=== PATIENT | female | born 1940 | race Caucasian/White ===

== ENCOUNTER 2017-03-09 15:39 | Inpatient (IN) | payer MEDICARE, BC ==
[~2017-03-09] VITALS: Ht 172.7 cm; Wt 90.0 kg
[~2017-03-09 15:39] MED LIST: BAC TOP; BORIC ACID VG; CHOL500050 PO; ESTRADIOL TOP; GABA TOP; GUAI100L97 PO; KETO TOP; LACT1CAP26 PO; LEVOTHYROXINE PO; LIOTHYRONINE PO; NAPR220T67 PO; OMEG500C PO; PENTOX TOP; TESTOST TOP; VITA1TAB20 PO
[2017-03-09 17:37] LABS: BASOPHILS % (AUTO) 0.3 % (0-1); EOSINOPHILS % (AUTO) 0.4 % (0-6); HEMATOCRIT 38.3 % (35.0-45.0); HEMOGLOBIN 12.6 g/dl (12.0-16.0); LYMPHOCYTES # (AUTO) 0.4 X10'3 (1.1-4.8); LYMPHOCYTES % (AUTO) 9.4 % (21-51); MEAN CORPUSCULAR HEMOGLOBIN 31.1 PG (27.0-31.0); MEAN CORPUSCULAR VOLUME 94.3 FL (78-98); MEAN PLATELET VOLUME 9.8 FL (7.4-10.4); MONOCYTES # (AUTO) 0.2 X10'3 (0-0.9); NEUTROPHILS # (AUTO) 3.9 X10'3 (1.8-7.7); NEUTROPHILS % (AUTO) 85.9 % (42-75); PLATELET COUNT 216 X10'3 (140-440); RED BLOOD COUNT 4.06 X10'6 (4.20-5.60); RED CELL DISTRIBUTION WIDTH 17.5 % (11.5-14.5); WHITE BLOOD COUNT 4.5 X10'3 (4.5-11.0)
[2017-03-09 17:45] LABS: PARTIAL THROMBOPLASTIN TIME 39 SECONDS (22-32)
[2017-03-09 17:51] LABS: ALANINE AMINOTRANSFERASE 69 U/L (12-78); ALBUMIN 2.7 G/DL (3.4-5.0); ALBUMIN/GLOBULIN RATIO 0.7 (1.1-1.5); ALKALINE PHOSPHATASE 111 IU/L (46-116); ANION GAP 7 (8-16); ASPARTATE AMINO TRANSFERASE 42 U/L (10-37); BILIRUBIN,TOTAL 0.4 MG/DL (0.1-1.0); BLOOD UREA NITROGEN 8 MG/DL (7-18); CALCIUM 9.7 MG/DL (8.5-10.1); CHLORIDE 96 MMOL/L (99-107); GLUCOSE 84 MG/DL (70-104); MAGNESIUM 1.7 MG/DL (1.5-2.4); POTASSIUM 4.3 MMOL/L (3.5-5.1); SODIUM 133 MMOL/L (135-145); TOTAL CARBON DIOXIDE 30.2 MMOL/L (24-32); TOTAL PROTEIN 6.8 G/DL (6.4-8.2); eGFR > 90 ML/MIN
[2017-03-09 17:52] LABS: ANISOCYTOSIS 1+; BANDS% (MANUAL) 20 % (0-10); LARGE PLATELETS FEW; LYMPHOCYTES % (MANUAL) 6 % (21-51); MONOCYTES % (MANUAL) 6 % (2-12); NEUTROPHILS % (MANUAL) 68 % (42-75); PLATELET ESTIMATE NORMAL; TOTAL CELLS COUNTED 100
[2017-03-09] MEDS ORDERED: normal saline 1000ML IV soln IVB ONE (18:05)
[2017-03-09] MEDS ORDERED: CefTRIAXone 2gm/NS 100ml IVPB 100 ML IV ONE (18:05)
[2017-03-09] MEDS ORDERED: ipratropium/albuterol 3ml nebule NEB ONE (18:05)
[2017-03-09] MEDS ORDERED: azithromycin/NS 500mg/250ml 250 ML IV ONE (18:10)
[2017-03-09] MEDS ORDERED: methylPREDNISolone sod succ 125mg/2ml vial IV ONE (20:30)
[2017-03-09 20:54] LABS: CLARITY,URINE Cloudy (Clear); COLOR,URINE Yellow (Yellow); GLUCOSE, URINE Negative (Neg); KETONES,URINE 40 mg/dl (Neg); LEUKOCYTE ESTERASE ,URINE Negative (Neg); NITRITES, URINE Positive (Neg); OCCULT BLOOD,URINE Negative (Neg); PROTEIN,URINE Negative (Neg); UROBILINOGEN,URINE 0.2 E.U/dL (0.2-1.0)
[2017-03-09] MEDS ORDERED: temazepam 15mg capsule PO PRN (21:00)
[2017-03-09 21:20] LABS: UA COLLECTION TYPE FOLEY CATH
[2017-03-09 21:21] LABS: BACTERIA,URINE 4+ /HPF (Neg); RBC,URINE NONE SEEN /HPF (0-2); SQUAMOUS EPITHELIAL CELL,UR FEW /LPF (FEW); WBC,URINE NONE SEEN /HPF (0-4)
[2017-03-09] MEDS ORDERED: magnesium hydroxide 30ml (MOM) UD suspension PO PRN (21:50)
[2017-03-09] MEDS ORDERED: HYDROmorphone 1 mg/ml syringe IV PRN ×2 (21:50)
[2017-03-09] MEDS ORDERED: magnesium 4gm in 100ml NS 100 ML IV PRN (21:50)
[2017-03-09] MEDS ORDERED: potassium Cl 40MEQ/NS 500ml 500 ML IV PRN ×2 (21:50)
[2017-03-09] MEDS ORDERED: acetaminophen 325mg tablet PO PRN (21:50)
[2017-03-09] MEDS ORDERED: ondansetron/PF 4mg/2ml inj IV PRN (21:50)
[2017-03-09] MEDS ORDERED: mag hydrox/Alum hydrox/simeth 30ml oral suspension PO PRN (21:50)
[2017-03-09] MEDS ORDERED: HYDROcodone/acetaminophen 10/325mg tab PO PRN (21:50)
[2017-03-09] MEDS ORDERED: potassium Cl 20 mEq SR tablet PO PRN ×2 (21:50)
[2017-03-09] MEDS ORDERED: HYDROcodone/acetaminophen 5mg/325mg tablet PO PRN (21:50)
[2017-03-09] MEDS ORDERED: magnesium Cl slow-release 64mg tablet PO PRN (21:50)
[2017-03-09] MEDS ORDERED: magnesium 2GM in 50ml NS 50 ML IV PRN (21:50)
[2017-03-09] MEDS: normal saline 1000ml 1,000 ML IV SCH (22:44)
[2017-03-10] MEDS: piperacillin/tazo 3.375gm/50ml 50 ML IV SCH ×4 (02:45→20:23)
[2017-03-10 06:00] VITALS: BP 135/70
[2017-03-10 06:05] LABS: HEMATOCRIT 37.1 % (35.0-45.0); HEMOGLOBIN 12.4 g/dl (12.0-16.0); MEAN CORPUSCULAR HEMOGLOBIN 31.3 PG (27.0-31.0); MEAN CORPUSCULAR HGB CONC 33.5 % (33.0-36.5); MEAN CORPUSCULAR VOLUME 93.4 FL (78-98); PLATELET COUNT 209 X10'3 (140-440); RED BLOOD COUNT 3.97 X10'6 (4.20-5.60); RED CELL DISTRIBUTION WIDTH 17.7 % (11.5-14.5); WHITE BLOOD COUNT 4.2 X10'3 (4.5-11.0)
[2017-03-10 06:44] LABS: ANISOCYTOSIS 2+; NUCLEATED RED BLOOD CELLS 1 /100WBC (0-0); PLATELET ESTIMATE NORMAL; TOTAL CELLS COUNTED 100
[2017-03-10 06:45] LABS: LARGE PLATELETS FEW; POIKILOCYTOSIS 1+; TARGET CELLS 1+; TOXIC GRANULATION 2+; TOXIC VACUOLATION 2+
[2017-03-10 07:03] LABS: ALANINE AMINOTRANSFERASE 61 U/L (12-78); ALBUMIN 2.3 G/DL (3.4-5.0); ALBUMIN/GLOBULIN RATIO 0.6 (1.1-1.5); ALKALINE PHOSPHATASE 121 IU/L (46-116); ANION GAP 10 (8-16); ASPARTATE AMINO TRANSFERASE 34 U/L (10-37); BILIRUBIN,TOTAL 0.4 MG/DL (0.1-1.0); BLOOD UREA NITROGEN 6 MG/DL (7-18); CALCIUM 9.5 MG/DL (8.5-10.1); CHLORIDE 101 MMOL/L (99-107); CREATININE 0.43 MG/DL (0.40-0.90); GLUCOSE 105 MG/DL (70-104); MAGNESIUM 1.6 MG/DL (1.5-2.4); POTASSIUM 4.7 MMOL/L (3.5-5.1); SODIUM 138 MMOL/L (135-145); TOTAL CARBON DIOXIDE 27.2 MMOL/L (24-32); TOTAL PROTEIN 6.4 G/DL (6.4-8.2); eGFR > 90 ML/MIN
[2017-03-10] MEDS ORDERED: methylPREDNISolone sod succ 125mg/2ml vial IV SCH (08:00)
[2017-03-10] MEDS: K and/or MAG REPLACEMENT MC SCH (08:00)
[2017-03-10] MEDS: normal saline 1000ml 1,000 ML IV SCH (08:18)
[2017-03-10] MEDS: azithromycin/NS 500mg/250ml 250 ML IV SCH (08:23)
[2017-03-10] MEDS: guaiFENesin 200mg/10ml UD cup PO SCH ×3 (08:29→20:23)
[2017-03-10] MEDS: vitamin B comp w/Vit. C tab 1 TAB TABLET PO SCH (08:31)
[2017-03-10] MEDS: lactobacillus rhamnosus 10,000 MMU CELLS/CAPSULE PO SCH ×2 (08:31→20:24)
[2017-03-10] MEDS: vitamin D (cholecalciferol) 1,000 unit tablet PO SCH (08:31)
[2017-03-10] MEDS: heparin, porcine 5000 units/ml vial SQ SCH ×2 (09:11→20:23)
[2017-03-10 10:00] VITALS: BP 130/64
[2017-03-10] MEDS: NORMAL SALINE IV SCH (10:01)
[2017-03-10] MEDS: METHYLPREDNISOLONE SOD SUCC IV SCH (10:01)
[2017-03-10 18:00] VITALS: BP 134/70
[2017-03-10 22:00] VITALS: BP 134/74
[2017-03-11] MEDS: piperacillin/tazo 3.375gm/50ml 50 ML IV SCH ×2 (02:19→10:21)
[2017-03-11 05:00] VITALS: BP 134/83
[2017-03-11 06:21] LABS: HEMATOCRIT 32.8 % (35.0-45.0); HEMOGLOBIN 10.9 g/dl (12.0-16.0); MEAN CORPUSCULAR HEMOGLOBIN 31.3 PG (27.0-31.0); MEAN CORPUSCULAR HGB CONC 33.3 % (33.0-36.5); MEAN CORPUSCULAR VOLUME 94.1 FL (78-98); MEAN PLATELET VOLUME 9.8 FL (7.4-10.4); PLATELET COUNT 226 X10'3 (140-440); RED BLOOD COUNT 3.49 X10'6 (4.20-5.60); RED CELL DISTRIBUTION WIDTH 17.1 % (11.5-14.5); WHITE BLOOD COUNT 4.5 X10'3 (4.5-11.0)
[2017-03-11 06:44] LABS: ALANINE AMINOTRANSFERASE 47 U/L (12-78); ALBUMIN 2.1 G/DL (3.4-5.0); ALBUMIN/GLOBULIN RATIO 0.6 (1.1-1.5); ALKALINE PHOSPHATASE 104 IU/L (46-116); ANION GAP 5 (8-16); ASPARTATE AMINO TRANSFERASE 22 U/L (10-37); BILIRUBIN,TOTAL 0.5 MG/DL (0.1-1.0); BLOOD UREA NITROGEN 10 MG/DL (7-18); BUN/CREATININE RATIO 21.3 (6.6-38.0); CALCIUM 9.1 MG/DL (8.5-10.1); CHLORIDE 105 MMOL/L (99-107); CREATININE 0.47 MG/DL (0.40-0.90); GLUCOSE 111 MG/DL (70-104); MAGNESIUM 1.9 MG/DL (1.5-2.4); POTASSIUM 3.9 MMOL/L (3.5-5.1); SODIUM 139 MMOL/L (135-145); TOTAL CARBON DIOXIDE 28.7 MMOL/L (24-32); TOTAL PROTEIN 5.8 G/DL (6.4-8.2); eGFR > 90 ML/MIN
[2017-03-11 07:23] LABS: TOTAL CELLS COUNTED 100
[2017-03-11 07:24] LABS: ANISOCYTOSIS 1+; LARGE PLATELETS FEW; PLATELET ESTIMATE NORMAL; POIKILOCYTOSIS FEW; TARGET CELLS FEW
[2017-03-11] MEDS: K and/or MAG REPLACEMENT MC SCH (08:00)
[2017-03-11] MEDS: lactobacillus rhamnosus 10,000 MMU CELLS/CAPSULE PO SCH ×2 (08:16→20:38)
[2017-03-11] MEDS: heparin, porcine 5000 units/ml vial SQ SCH ×2 (08:17→20:37)
[2017-03-11] MEDS: vitamin D (cholecalciferol) 1,000 unit tablet PO SCH (08:17)
[2017-03-11] MEDS: vitamin B comp w/Vit. C tab 1 TAB TABLET PO SCH (08:17)
[2017-03-11] MEDS: guaiFENesin 200mg/10ml UD cup PO SCH ×3 (08:17→20:38)
[2017-03-11] MEDS: NORMAL SALINE IV SCH (08:18)
[2017-03-11] MEDS: METHYLPREDNISOLONE SOD SUCC IV SCH (08:18)
[2017-03-11] MEDS: azithromycin/NS 500mg/250ml 250 ML IV SCH (08:19)
[2017-03-11] MEDS: LACTOSE-FREE FOOD 237ML (BOOST) PO SCH ×3 (08:21→18:27)
[2017-03-11 10:00] VITALS: BP 144/86
[2017-03-11] MEDS ORDERED: meropenem inj 1 GM in normal saline 100ml IV soln 100 ML IV SCH (13:35)
[2017-03-11] MEDS: ampicillin inj 1 GM in normal saline 100ml IV soln 100 ML IV SCH ×2 (14:25→20:37)
[2017-03-11 18:00] VITALS: BP 155/92
[2017-03-11 22:00] VITALS: BP_SYST 132; BP_SYST 155; BP_DIAS 92
[2017-03-11] MEDS: meropenem inj 1 GM in normal saline 100ml IV soln 100 ML IV SCH (22:40)
[2017-03-12] MEDS: ampicillin inj 1 GM in normal saline 100ml IV soln 100 ML IV SCH ×4 (02:16→20:48)
[2017-03-12 05:00] VITALS: BP 138/78
[2017-03-12 06:52] LABS: ALANINE AMINOTRANSFERASE 48 U/L (12-78); ALBUMIN 2.3 G/DL (3.4-5.0); ALBUMIN/GLOBULIN RATIO 0.6 (1.1-1.5); ALKALINE PHOSPHATASE 112 IU/L (46-116); ANION GAP 6 (8-16); ASPARTATE AMINO TRANSFERASE 23 U/L (10-37); BILIRUBIN,TOTAL 0.4 MG/DL (0.1-1.0); BLOOD UREA NITROGEN 16 MG/DL (7-18); BUN/CREATININE RATIO 33.3 (6.6-38.0); CALCIUM 9.4 MG/DL (8.5-10.1); CHLORIDE 106 MMOL/L (99-107); CREATININE 0.48 MG/DL (0.40-0.90); GLUCOSE 106 MG/DL (70-104); POTASSIUM 4.7 MMOL/L (3.5-5.1); SODIUM 142 MMOL/L (135-145); TOTAL CARBON DIOXIDE 30.4 MMOL/L (24-32); TOTAL PROTEIN 6.2 G/DL (6.4-8.2); eGFR > 90 ML/MIN
[2017-03-12] MEDS: meropenem inj 1 GM in normal saline 100ml IV soln 100 ML IV SCH ×3 (07:02→21:41)
[2017-03-12 08:00] LABS: BASOPHILS % (AUTO) 0.1 % (0-1); EOSINOPHILS % (AUTO) 0 % (0-6); HEMATOCRIT 33.7 % (35.0-45.0); HEMOGLOBIN 11.1 g/dl (12.0-16.0); LYMPHOCYTES # (AUTO) 0.4 X10'3 (1.1-4.8); MEAN CORPUSCULAR HEMOGLOBIN 30.8 PG (27.0-31.0); MEAN CORPUSCULAR VOLUME 93.3 FL (78-98); MEAN PLATELET VOLUME 9.3 FL (7.4-10.4); MONOCYTES # (AUTO) 0.2 X10'3 (0-0.9); NEUTROPHILS # (AUTO) 3.6 X10'3 (1.8-7.7); NEUTROPHILS % (AUTO) 86.9 % (42-75); PLATELET COUNT 271 X10'3 (140-440); RED BLOOD COUNT 3.62 X10'6 (4.20-5.60); RED CELL DISTRIBUTION WIDTH 17.1 % (11.5-14.5); WHITE BLOOD COUNT 4.1 X10'3 (4.5-11.0)
[2017-03-12] MEDS: K and/or MAG REPLACEMENT MC SCH (08:00)
[2017-03-12] MEDS: vitamin B comp w/Vit. C tab 1 TAB TABLET PO SCH (08:44)
[2017-03-12] MEDS: heparin, porcine 5000 units/ml vial SQ SCH ×2 (08:44→20:49)
[2017-03-12] MEDS: lactobacillus rhamnosus 10,000 MMU CELLS/CAPSULE PO SCH ×2 (08:44→20:48)
[2017-03-12] MEDS: LACTOSE-FREE FOOD 237ML (BOOST) PO SCH ×3 (08:46→18:00)
[2017-03-12] MEDS: guaiFENesin 200mg/10ml UD cup PO SCH ×3 (08:46→21:03)
[2017-03-12] MEDS: vitamin D (cholecalciferol) 1,000 unit tablet PO SCH (08:52)
[2017-03-12] MEDS: azithromycin/NS 500mg/250ml 250 ML IV SCH (09:55)
[2017-03-12 10:00] VITALS: BP 131/77
[2017-03-12 18:49] VITALS: BP 146/82
[2017-03-12 22:13] VITALS: BP 156/87
[2017-03-13] MEDS: ampicillin inj 1 GM in normal saline 100ml IV soln 100 ML IV SCH ×3 (02:51→13:16)
[2017-03-13] MEDS: meropenem inj 1 GM in normal saline 100ml IV soln 100 ML IV SCH ×2 (05:15→13:17)
[2017-03-13 06:47] LABS: BASOPHILS % (AUTO) 0.4 % (0-1); EOSINOPHILS % (AUTO) 0.1 % (0-6); HEMATOCRIT 34.8 % (35.0-45.0); HEMOGLOBIN 11.3 g/dl (12.0-16.0); LYMPHOCYTES # (AUTO) 0.7 X10'3 (1.1-4.8); LYMPHOCYTES % (AUTO) 7.9 % (21-51); MEAN CORPUSCULAR HEMOGLOBIN 30.8 PG (27.0-31.0); MEAN CORPUSCULAR HGB CONC 32.6 % (33.0-36.5); MEAN CORPUSCULAR VOLUME 94.5 FL (78-98); MEAN PLATELET VOLUME 8.4 FL (7.4-10.4); MONOCYTES # (AUTO) 0.5 X10'3 (0-0.9); MONOCYTES % (AUTO) 6.4 % (2-12); NEUTROPHILS # (AUTO) 7.2 X10'3 (1.8-7.7); NEUTROPHILS % (AUTO) 85.2 % (42-75); PLATELET COUNT 273 X10'3 (140-440); RED BLOOD COUNT 3.68 X10'6 (4.20-5.60); RED CELL DISTRIBUTION WIDTH 17.5 % (11.5-14.5); WHITE BLOOD COUNT 8.5 X10'3 (4.5-11.0)
[2017-03-13 06:53] VITALS: BP 156/80
[2017-03-13 07:22] LABS: ALANINE AMINOTRANSFERASE 44 U/L (12-78); ALBUMIN 2.3 G/DL (3.4-5.0); ALBUMIN/GLOBULIN RATIO 0.6 (1.1-1.5); ALKALINE PHOSPHATASE 108 IU/L (46-116); ANION GAP 5 (8-16); ASPARTATE AMINO TRANSFERASE 21 U/L (10-37); BILIRUBIN,TOTAL 0.4 MG/DL (0.1-1.0); BLOOD UREA NITROGEN 23 MG/DL (7-18); BUN/CREATININE RATIO 43.4 (6.6-38.0); CHLORIDE 107 MMOL/L (99-107); CREATININE 0.53 MG/DL (0.40-0.90); GLUCOSE 96 MG/DL (70-104); MAGNESIUM 1.9 MG/DL (1.5-2.4); POTASSIUM 4.4 MMOL/L (3.5-5.1); SODIUM 144 MMOL/L (135-145); TOTAL CARBON DIOXIDE 32.4 MMOL/L (24-32); TOTAL PROTEIN 5.9 G/DL (6.4-8.2); eGFR > 90 ML/MIN
[2017-03-13 07:38] LABS: HYPOGRANULAR PLATELETS FEW; LARGE PLATELETS FEW; PLATELET ESTIMATE NORMAL
[2017-03-13 07:39] LABS: GIANT PLATELET FEW
[2017-03-13] MEDS: lactobacillus rhamnosus 10,000 MMU CELLS/CAPSULE PO SCH ×2 (07:57→21:33)
[2017-03-13] MEDS: azithromycin 250mg tablet PO SCH (07:57)
[2017-03-13] MEDS: vitamin B comp w/Vit. C tab 1 TAB TABLET PO SCH (07:57)
[2017-03-13] MEDS: LACTOSE-FREE FOOD 237ML (BOOST) PO SCH ×3 (07:58→18:00)
[2017-03-13] MEDS: vitamin D (cholecalciferol) 1,000 unit tablet PO SCH (07:59)
[2017-03-13] MEDS: heparin, porcine 5000 units/ml vial SQ SCH ×2 (07:59→21:24)
[2017-03-13] MEDS: guaiFENesin 200mg/10ml UD cup PO SCH ×3 (07:59→22:00)
[2017-03-13] MEDS: K and/or MAG REPLACEMENT MC SCH (08:00)
[2017-03-13 11:11] VITALS: BP 164/92
[2017-03-13 18:00] VITALS: BP 145/91
[2017-03-13 22:00] VITALS: BP 126/72
[2017-03-13] MEDS: ampicillin/sulbac 3gm/NS 100ml 100 ML IV SCH (22:26)
[2017-03-14] MEDS: ampicillin/sulbac 3gm/NS 100ml 100 ML IV SCH ×4 (02:16→21:14)
[2017-03-14 06:10] LABS: BASOPHILS % (AUTO) 0.1 % (0-1); EOSINOPHILS # (AUTO) 0.1 X10'3 (0-0.9); EOSINOPHILS % (AUTO) 1.5 % (0-6); HEMATOCRIT 34.8 % (35.0-45.0); HEMOGLOBIN 11.6 g/dl (12.0-16.0); LYMPHOCYTES # (AUTO) 0.8 X10'3 (1.1-4.8); LYMPHOCYTES % (AUTO) 8.2 % (21-51); MEAN CORPUSCULAR HGB CONC 33.2 % (33.0-36.5); MEAN CORPUSCULAR VOLUME 93.4 FL (78-98); MEAN PLATELET VOLUME 8.3 FL (7.4-10.4); MONOCYTES # (AUTO) 0.6 X10'3 (0-0.9); MONOCYTES % (AUTO) 5.8 % (2-12); NEUTROPHILS # (AUTO) 8.4 X10'3 (1.8-7.7); NEUTROPHILS % (AUTO) 84.4 % (42-75); PLATELET COUNT 278 X10'3 (140-440); RED BLOOD COUNT 3.73 X10'6 (4.20-5.60); RED CELL DISTRIBUTION WIDTH 16.8 % (11.5-14.5)
[2017-03-14 06:34] VITALS: BP 145/75
[2017-03-14 07:09] LABS: ALANINE AMINOTRANSFERASE 46 U/L (12-78); ALBUMIN 2.4 G/DL (3.4-5.0); ALBUMIN/GLOBULIN RATIO 0.7 (1.1-1.5); ALKALINE PHOSPHATASE 106 IU/L (46-116); ANION GAP 6 (8-16); ASPARTATE AMINO TRANSFERASE 21 U/L (10-37); BILIRUBIN,TOTAL 0.5 MG/DL (0.1-1.0); BLOOD UREA NITROGEN 17 MG/DL (7-18); BUN/CREATININE RATIO 40.5 (6.6-38.0); CALCIUM 9.1 MG/DL (8.5-10.1); CHLORIDE 105 MMOL/L (99-107); CREATININE 0.42 MG/DL (0.40-0.90); GLUCOSE 91 MG/DL (70-104); MAGNESIUM 1.8 MG/DL (1.5-2.4); POTASSIUM 4.1 MMOL/L (3.5-5.1); SODIUM 144 MMOL/L (135-145); TOTAL CARBON DIOXIDE 33.4 MMOL/L (24-32); eGFR > 90 ML/MIN
[2017-03-14] MEDS: LACTOSE-FREE FOOD 237ML (BOOST) PO SCH ×3 (08:00→18:58)
[2017-03-14] MEDS: K and/or MAG REPLACEMENT MC SCH (08:00)
[2017-03-14] MEDS: guaiFENesin 200mg/10ml UD cup PO SCH ×3 (08:00→21:13)
[2017-03-14] MEDS: vitamin D (cholecalciferol) 1,000 unit tablet PO SCH (08:00)
[2017-03-14] MEDS: azithromycin 250mg tablet PO SCH (08:58)
[2017-03-14] MEDS: vitamin B comp w/Vit. C tab 1 TAB TABLET PO SCH (08:58)
[2017-03-14] MEDS: lactobacillus rhamnosus 10,000 MMU CELLS/CAPSULE PO SCH ×2 (08:59→21:12)
[2017-03-14] MEDS: heparin, porcine 5000 units/ml vial SQ SCH ×2 (09:00→21:13)
[2017-03-14 11:30] VITALS: BP 142/73
[2017-03-14 18:30] VITALS: BP 131/72
[2017-03-14 22:00] VITALS: BP 138/78
[2017-03-15] MEDS: ampicillin/sulbac 3gm/NS 100ml 100 ML IV SCH ×4 (02:10→20:39)
[2017-03-15 05:00] VITALS: BP 134/67
[2017-03-15] MEDS: LACTOSE-FREE FOOD 237ML (BOOST) PO SCH ×3 (08:00→18:53)
[2017-03-15] MEDS: K and/or MAG REPLACEMENT MC SCH (08:00)
[2017-03-15] MEDS: heparin, porcine 5000 units/ml vial SQ SCH ×2 (08:16→20:38)
[2017-03-15] MEDS: azithromycin 250mg tablet PO SCH (08:16)
[2017-03-15] MEDS: vitamin D (cholecalciferol) 1,000 unit tablet PO SCH (08:16)
[2017-03-15] MEDS: vitamin B comp w/Vit. C tab 1 TAB TABLET PO SCH (08:16)
[2017-03-15] MEDS: lactobacillus rhamnosus 10,000 MMU CELLS/CAPSULE PO SCH ×2 (08:16→20:37)
[2017-03-15] MEDS: guaiFENesin 200mg/10ml UD cup PO SCH ×3 (08:26→20:38)
[2017-03-15] MEDS ORDERED: BARIUM SULFATE 340 ML SUSP.RECON***PROCEDURE AREA ONLY**DONT ENTER PO ONE (08:48)
[2017-03-15 10:00] VITALS: BP 130/71
[2017-03-15] MEDS ORDERED: AMOX-580 PO (11:08)
[2017-03-15] MEDS ORDERED: AZIT500T5 PO (11:08)
[2017-03-15] MEDS ORDERED: bisacodyl 10mg suppository rectal RC PRN (17:40)
[2017-03-15 18:30] VITALS: BP 145/77
[2017-03-15 22:00] VITALS: BP 155/89
[2017-03-16] MEDS: ampicillin/sulbac 3gm/NS 100ml 100 ML IV SCH ×3 (01:45→13:06)
[2017-03-16 05:00] VITALS: BP 146/75
[2017-03-16] MEDS: K and/or MAG REPLACEMENT MC SCH (08:00)
[2017-03-16] MEDS: LACTOSE-FREE FOOD 237ML (BOOST) PO SCH ×2 (08:00→13:00)
[2017-03-16] MEDS: vitamin D (cholecalciferol) 1,000 unit tablet PO SCH (08:36)
[2017-03-16] MEDS: guaiFENesin 200mg/10ml UD cup PO SCH ×2 (08:36→13:06)
[2017-03-16] MEDS: lactobacillus rhamnosus 10,000 MMU CELLS/CAPSULE PO SCH (08:36)
[2017-03-16] MEDS: vitamin B comp w/Vit. C tab 1 TAB TABLET PO SCH (08:36)
[2017-03-16] MEDS: heparin, porcine 5000 units/ml vial SQ SCH (08:36)
[2017-03-16 10:00] VITALS: BP 145/81
== END 2017-03-16 14:15 | DRG 871 ==
LOC: ER 15:39 → ED HOLD 21:48 → ORTHO 4S 23:44
PROVIDERS: ADMIT Internal Medicine; ATTEND Internal Medicine
DX: A41.9 Sepsis, unspecified organism (principal); J69.0 Pneumonitis due to inhalation of food and vomit; E46 Unspecified protein-calorie malnutrition; Z94.84 Stem cells transplant status; L03.115 Cellulitis of right lower limb; N39.0 Urinary tract infection, site not specified; L03.116 Cellulitis of left lower limb; G35 Multiple sclerosis; T68.XXXA Hypothermia, initial encounter; Z16.12 Extended spectrum beta lactamase (ESBL) resistance; B95.2 Enterococcus as the cause of diseases classified elsewhere; R09.02 Hypoxemia; E55.9 Vitamin D deficiency, unspecified; Z90.710 Acquired absence of both cervix and uterus; Z88.2 Allergy status to sulfonamides; Z88.1 Allergy status to other antibiotic agents; Z88.8 Allergy status to other drugs, medicaments and biological substances; Z91.012 Allergy to eggs; Z79.899 Other long term (current) drug therapy; Z68.30 Body mass index [BMI] 30.0-30.9, adult
CPT/HCPCS: 36415; 71010; 74230; 80053; 81001; 83605; 83735; 83880; 84145; 84484; 85025; 85610; 85730; 87040; 87070; 87077; 87088; 87186; 87502; 87503; 93005; 94640; 94760; 96365; 96368; 96375; 97110; 97162; 97530; 99285; A6213; J0290; J0295; J0456; J0696; J1644; J2185; J2543; J2930; J7030